=== PATIENT | male | born 1995 ===

== ENCOUNTER 2017-05-20 23:32 | Emergency (ER) ==
--- NOTE | 2017-05-21 08:22 | EKG REPORT ---
SEVERITY:- NORMAL ECG - SINUS RHYTHM : Confirmed by: Jeison Craft MD 21-May-2017 08:20:31
== END 2017-05-21 01:50 | disposition left against medical advice (07) ==
LOC: ER 23:32
DX: Z53.21 Procedure and treatment not carried out due to patient leaving prior to being seen by health care provider (principal)
CPT/HCPCS: 93005; 93010